=== PATIENT | female | born 1955 | race Caucasian/White ===

== ENCOUNTER 2023-09-15 18:30 | Inpatient (IN) | payer MEDICARE ==
[2023-09-15] MEDS ORDERED: NICOTINE GUM (POLACRILEX) 2 MG GUM BUCCAL PRN (19:29)
[2023-09-15] MEDS ORDERED: IPRATROPIUM-ALBUTEROL 3 ML NEB INHALATION PRN (19:29)
[2023-09-15] MEDS ORDERED: NALOXONE 0.4 MG/ML 1 ML VIAL IVP PRN (19:29)
--- NOTE | 2023-09-15 19:41 | ED ---
General Adult HPI - General Chief complaint: Shortness of Breath Stated complaint: SOB Time Seen by Provider: 09/15/23 18:33 Source: patient, EMS Mode of arrival: EMS Limitations: no limitations - History of Present Illness Initial comments: Elmira is a pleasant 68-year-old female with a history of lung cancer status posttreatment follows with oncology once yearly. Patient has a history of COPD and she reports she still smokes 6 to 10 cigarettes a day however for the past 2 to 3 days she has been feeling more short of breath she has not had any cigar ettes. Today shortness of breath was worsening she was not having any chest pain or productive cough but she went to see Eliza at outside hospital was noted to have COPD exacerbation with oxygen saturations were in the low 80s. - Related Data Allergies Allergy/AdvReac Type Severity Reaction Status Date / Time No Known Allergies Allergy Verified 09/15/23 18:40 Review of Systems ROS Statement: Those systems with pertinent positive or pertinent negative responses have been documented in the HPI. ROS Other: All systems not noted in ROS Statement are negative. Past Medical History Past Medical History: COPD History of Any Multi-Drug Resistant Organisms: None Reported Past Psychological History: No Psychological Hx Reported Smoking Status: Former smoker Past Alcohol Use History: None Reported Past Drug Use History: None Reported General Exam - General Exam Comments Initial Comments: Physical Exam GENERAL: Patient is well-developed and well-nourished. Patient is nontoxic and well-hydrated and is in no distress. HENT: Normocephalic, Atraumatic. EYES: PERRL, EOMI PULMONARY: Mild expiratory wheezing CARDIOVASCULAR: RRR Warm and well perfused extremities ABDOMEN: Non-distended SKIN: No rashes or bruising : Deferred NEUROLOGIC: Alert and oriented Normal speech Normal gait MUSCULOSKELETAL: Moving all extremities with no apparent injury PSYCHIATRIC: No SI/HI Limitations: no limitations Course Vital Signs 09/15/23 09/15/23 09/15/23 18:31 18:40 20:01 Temperature 98.1 F Pulse Rate 85 80 Respiratory 18 24 17 Rate Blood Pressure 134/75 116/61 O2 Sat by Pulse 97 98 Oximetry EKG Findings - EKG Comments: EKG Findings:: EKG interpreted by me EKG obtained due to complaint of dyspnea EKG obtained at 1841 rate is 84 rhythm is sinus with evidence of LVH. No acute ST elevations depressions no evidence of acute ischemia or infarction. Medical Decision Making - Medical Decision Making Was pt. sent in by a medical professional or institution (KLEVER Beckford, STUDENT SUPPORT SERVICES DIRECTOR, urgent care, hospital, or [facility]...) When possible be specific @ -Yes, transferring physician Did you speak to anyone other than the patient for history (EMS, parent, family, police, friend...)? What history was obtained from this source @ -Transferring physician, EMS Did you review nursing and triage notes (agree or disagree)? Why? @ -I reviewed and agree with nursing and triage notes Were old charts reviewed (outside hosp., previous admission, EMS record, old EKG, old radiological studies, urgent care reports/EKG's, [facility] records)? Report findings @ -Transfer charts were reviewed Differential Diagnosis (chest pain, altered mental status, abdominal pain women, abdominal pain men, vaginal bleeding, weakness, fever, dyspnea, syncope, headache, dizziness, GI bleed, back pain, seizure, CVA, palpatations, mental health)? @ -Not applicable EKG interpreted by me (3pts min.). @ -As above X-rays interpreted by me (1pt min.). @ -Outpatient x-ray with no signs of pneumonia CT interpreted by me (1pt min.). @ -None done U/S interpreted by me (1pt. min.). @ -None done What testing was considered but not performed or refused? (CT, X-rays, U/S, labs)? Why? @ -None What meds were considered but not given or refused? Why? @ -None Did you discuss the management of the patient with other professionals (professionals i.e. KLEVER Beckfodr, STUDENT SUPPORT SERVICES DIRECTOR, lab, RT, psych nurse, social director, dietitian teaching, teacher, information officer, manager of case management)? Give summary @ -Admitting team Was smoking cessation discussed for >3mins.? @ -Yes Was critical care preformed (if so, how long)? @ -No Were there social determinants of health that impacted care today? How? (Homelessness, low income, unemployed, alcoholism, drug addiction, transportation, low edu. Level, literacy, decrease access to med. care, long term, rehab)? @ -No Was there de-escalation of care discussed even if they declined (Discuss DNR or withdrawal of care, Hospice)? DNR status @ -No What co-morbidities impacted this encounter? (DM, HTN, Smoking, COPD, CAD, Cancer, CVA, ARF, Chemo, Hep., AIDS, mental health diagnosis, sleep apnea, morbid obesity)? @ -COPD, lung cancer Was patient admitted / discharged? Hospital course, mention meds given and route, prescriptions, significant lab abnormalities, going to OR and other pertinent info. @ -Admit Patient care was discussed with transferring physician patient does not typically require oxygen and is now hypoxic to the low 80s with moderate COPD exacerbation. Patient transferred here due to preference. Patient will be admitted for COPD exacerbation with hypoxia. Undiagnosed new problem with uncertain prognosis? @ -No Drug Therapy requiring intensive monitoring for toxicity (Heparin, Nitro, Insulin, Cardizem)? @ -No Were any procedures done? @ -No Diagnosis/symptom? @ -COPD exacerbation, hypoxia Acute, or Chronic, or Acute on Chronic? @ -Acute Uncomplicated (without systemic symptoms) or Complicated (systemic symptoms)? @ -Default Side effects of treatment? @ -No Exacerbation, Progression, or Severe Exacerbation? @ -Severe exacerbation Poses a threat to life or bodily function? How? (Chest pain, USA, MD, pneumonia, PE, COPD, DKA, ARF, appy, cholecystitis, CVA, Diverticulitis, Homicidal, Suicidal, threat to staff... and all critical care pts) @ -Can advance to respiratory failure and arrest Disposition Clinical Impression: COPD exacerbation, Hypoxic respiratory failure Disposition: ADMITTED IP TO THIS HOSP Condition: Serious Is patient prescribed a controlled substance at d/c from ED?: No
[2023-09-15] MEDS: AZITHROMYCIN 500 MG TAB PO SCH (20:16)
[2023-09-15] MEDS: methylPREDNISolone SOD SUCCI 125 MG/2 ML VIAL IV SCH (23:25)
--- NOTE | 2023-09-16 01:13 | XR ---
EXAMINATION TYPE: XR chest 1V portable DATE OF EXAM: 09/16/2023 CLINICAL HISTORY: Acute hypoxemic respiratory failure TECHNIQUE: Single frontal view of the chest is obtained. COMPARISON: None FINDINGS: There is small to tiny left pleural effusion. Some chronic type changes are present. The c ardiac silhouette size is within normal limits. Surgical clips left axilla and near the gastroesophag eal junction are noted. Patient is rotated to the left. The osseous structures are intact. IMPRESSION: Small to tiny left pleural effusion.
[2023-09-16 02:21] LABS: Basophils % (A) 0 %; Eosinophils % (A) 0 %; HCT 42.2 % (34.0-46.0); Lymphocytes # (A) 0.6 k/uL (1.0-4.8); Lymphocytes % (A) 11 %; MCH 30.1 pg (25.0-35.0); MCHC 33.2 g/dL (31.0-37.0); MCV 90.4 fL (80.0-100.0); Mean Platelet Volume 8.3; Monocytes # (A) 0.1 k/uL (0-1.0); Monocytes % (A) 2 %; Neutrophils # (A) 4.4 k/uL (1.3-7.7); Neutrophils % (A) 86 %; Platelet Count 266 k/uL (150-450); RBC 4.67 m/uL (3.80-5.40); RDW 13.3 % (11.5-15.5); WBC 5.1 k/uL (3.8-10.6)
[2023-09-16 02:30] LABS: ALT 14 U/L (4-34); AST 22 U/L (14-36); African American GFR (CKD) >90 (>60 ml/min/1.73 sqM); Albumin 3.9 g/dL (3.5-5.0); Albumin/Globulin Ratio 1.4; Alkaline Phosphatase 109 U/L (38-126); Anion Gap 6 mmol/L; Blood Urea Nitrogen 21 mg/dL (7-17); Calcium 9.5 mg/dL (8.4-10.2); Carbon Dioxide 28 mmol/L (22-30); Chloride 105 mmol/L (98-107); Globulin 2.7 g/dL; Glucose 162 mg/dL (74-99); Non-African American GFR(CKD) >90 (>60 ml/min/1.73 sqM); Potassium 4.2 mmol/L (3.5-5.1); Sodium 139 mmol/L (137-145); Total Bilirubin 0.5 mg/dL (0.2-1.3); Total Protein 6.6 g/dL (6.3-8.2)
--- NOTE | 2023-09-16 05:08 | P.CNPUL ---
History of Present Illness Consult date: 09/16/23 Requesting physician: Radha Farrell Reason for consult: COPD Chief complaint: Shortness of breath History of present illness: I am seeing this patient in consultation today 09/16/2023 after the patient was transferred to our facility from [facility] [place]. Patient is a 68-year-old white female with past medical history significant for COPD, lung cancer status posttreatment 8 years ago, and current ongoing tobacco dependence. Patient is originally from the [facility], where she follows with her primary care provider Dr. Zhao Ruano. She also has a out-of-town oncologist, Dr. Redding, who monitors her lung cancer. Patient has had a previous left upper lobectomy and adjuvant chemotherapy. Remains in remission. She just recently moved to the area to be closer to her family. She does plan to keep her recurrent physicians. She does have history of COPD which is normally managed with a combination of Trelegy inhaler and as needed albuterol rescue inhaler. She does continue to smoke 6 to 12 cigarettes/day. Over the last couple days the patient has been experiencing progressively worsening shortness of breath. She has been coughing and producing green purulent sputum. She states that her chest has been tight and she has been wheezing. Denies any fevers. Denies any sick contacts. She does report some right lateral chest pain described as stabbing/catching, lasting seconds to maybe 1 minute. During these events it is hard to get a deep breath. Happens when moving around or playing with her grandchildren. Yesterday, during episode of shortness of breath, where she could not catch her breath, she had a SpO2 of and 79%. She initially presented to [facility], then she was transferred to our facility. She is currently sitting up in bed, on 3 L/min nasal cannula, in no acute distress. Chest x-ray shows marked hyperinflation with flattening of the diaphragm consistent with COPD. No focal infiltrates or evidence of pneumonia. She was negative for influenza, RSV, COVID. Labs are pending. Currently afebrile. Vital signs are stable. Review of Systems REVIEW OF SYSTEMS: CONSTITUTIONAL: Denies any recent significant weight loss or weight gain. EYES: Denies change in vision. EARS, NOSE, MOUTH, THROAT: Denies headaches, denies sore throat. CARDIOVASCULAR: Denies radiating chest pain, palpitations or syncopal episodes. Denies lower extremity swelling. RESPIRATORY: See HPI GASTROINTESTINAL: Denies change in appetite, abdominal pain, nausea and vomiting, or diarrhea GENITOURINARY: Denies hematuria, denies infections. MUSKULOSKELETAL: Denies pain, denies swelling. INTEGUMENTARY: Denies rash, denies eczema. NEUROLOGICAL: Denies recent memory loss, no recent seizure activity. PSYCHIATRIC: Denies anxiety, denies depression. HEMATOLOGIC/LYMPHATIC: Denies anemia, denies enlarged lymph node Past Medical History Past Medical History: COPD History of Any Multi-Drug Resistant Organisms: None Reported Past Surgical History: Breast Surgery, Hysterectomy, Tonsillectomy Additional Past Surgical History / Comment(s): breast lupectomy left side,upper left lung lobe removed Past Psychological History: No Psychological Hx Reported Smoking Status: Former smoker Past Alcohol Use History: None Reported Past Drug Use History: None Reported Medications and Allergies Home Medications Medication Instructions Recorded Confirmed Type Albuterol Nebulized [Ventolin 2.5 mg INHALATION RT-QID PRN 09/15/23 09/15/23 History Nebulized] Albuterol Sulfate [Ventolin HFA] 2 puff INHALATION RT-Q4H PRN 09/15/23 09/15/23 History Anastrozole [Arimidex] 1 mg PO DAILY 09/15/23 09/15/23 History Ergocalciferol [Vitamin D2 (1250 1,250 mcg PO TU 09/15/23 09/15/23 History Mcg = 21959 Iu)] Fluticasone/Umeclidin/Vilanter 1 puff INHALATION RT-DAILY 09/15/23 09/15/23 History [Trelegy Ellipta 200-62.5-25] HYDROcodone/APAP 5-325MG [[place] 0.5 tab PO Q4HR PRN 09/15/23 09/15/23 History 5-325] Pantoprazole [Protonix] 40 mg PO DAILY 09/15/23 09/15/23 History diazePAM [Valium] 2.5 mg PO BID PRN 09/15/23 09/15/23 History Allergies Allergy/AdvReac Type Severity Reaction Status Date / Time No Known Allergies Allergy Verified 09/15/23 22:11 Physical Exam Vitals: Vital Signs Temp Pulse Pulse Resp BP BP Pulse Ox 09/15/23 22:35 97.7 F 82 16 132/82 97 09/15/23 22:23 82 16 09/15/23 20:01 80 17 116/61 98 09/15/23 18:40 24 09/15/23 18:31 98.1 F 85 18 134/75 97 Intake and Output 09/15/23 09/15/23 09/16/23 14:59 22:59 06:59 Other: Voiding Method Toilet Weight 54.431 kg GENERAL EXAM: Alert, 68-year-old white female, comfortable in no apparent distress. HEAD: Normocephalic and atraumatic EYES: Normal reaction of pupils, equal size. NOSE: Clear with pink turbinates. THROAT: No erythema or exudates. NECK: No masses, no JVD. CHEST: No chest wall deformity. LUNGS: Equal air entry with markedly diminished lung sounds throughout. On 3 L/ min nasal cannula. No conversational dyspnea or accessory muscle use.. CVS: S1 and S2 normal with no audible murmur, regular rhythm. No extra heart sounds ABDOMEN: No hepatosplenomegaly, active bowel sounds, no guarding or rigidity. SPINE: No scoliosis or deformity SKIN: No rashes CENTRAL NERVOUS SYSTEM: No focal deficits, tone is normal in all 4 extremities. EXTREMITIES: There is no peripheral edema, clubbing, or cyanosis. Peripheral pulses are intact. Results - Laboratory Findings CBC and BMP: 09/16/23 02:04 09/16/23 02:04 - Diagnostic Findings Chest x-ray: image reviewed Assessment and Plan Assessment: Acute hypoxemic respiratory failure, secondary to suspected acute COPD exacerbation. Chest x-ray does not show any focal infiltrates or evidence of pneumonia. There are some marked hyperinflation with flattening of the diaphragm consistent with COPD. Negative for influenza, RSV, COVID. Remote history of lung CA, status post left upper lobectomy and adjuvant chemotherapy, patient follows up annually with an out-of-town oncologist. Reportedly remains in remission. Chronic obstructive pulmonary disease, normally maintained on a combination of Trelegy inhaler and as needed albuterol rescue inhaler. Chronic ongoing tobacco dependence, reportedly smokes 6 to 12 cigarettes/day. History of GERD, without esophagitis History of anxiety Plan: Patient's medications and chest x-ray reviewed Labs are pending Continue supplemental oxygen to maintain oxygen saturation of 92% or greater Start patient on combination of bronchodilators, Symbicort Hailer, and IV Solu- Medrol Azithromycin added empirically. Smoking cessation counseling performed. Nicotine replacement offered. Will continue to follow with her out-of-town providers on discharge. We will continue to follow while inpatient I have personally seen and examined the patient, performed the documentation and the assessment and plan as written. Number of minutes spent on the visit:20 Time with Patient: Greater than 30
[2023-09-16 07:06] LABS: Glucose,Whole Blood 159 mg/dL (70-110)
[2023-09-16] MEDS: SYMBICORT 160-4.5 MCG INHALER INHALATION SCH (09:18)
[2023-09-16] MEDS: IPRATROPIUM-ALBUTEROL 3 ML NEB INHALATION SCH (09:19)
[2023-09-16] MEDS ORDERED: diazePAM 5 MG TAB PO PRN (09:38)
[2023-09-16] MEDS ORDERED: HYDROcodone/APAP 5-325MG 1 EACH TAB PO PRN (09:38)
[2023-09-16] MEDS: IBUPROFEN 400 MG TAB PO PRN (09:55)
[2023-09-16] MEDS: PANTOPRAZOLE 40 MG TABLET PO SCH (09:55)
[2023-09-16] MEDS: ANASTROZOLE 1 MG TAB PO SCH (09:56)
[2023-09-16 12:22] LABS: Glucose,Whole Blood 154 mg/dL (70-110)
[2023-09-16] MEDS ORDERED: DEXTROSE 50% SYRINGE 50 ML IVP PRN ×2 (15:42)
--- NOTE | 2023-09-16 15:44 | P.HPIM ---
History of Present Illness H&P Date: 09/16/23 This is a pleasant 68-year-old female with medical history significant for COPD, breast cancer, lung cancer with left upper lobectomy. Patient is in a normal therapy outpatient. Continues to smoke 1/2 pack of cigarettes per day. Patient comes in with complaints of shortness of breath over the last 2 to 3 days as well as chest discomfort worse with deep breathing. She is not having any cough. No fever or chills. No nausea vomiting or diarrhea. She was seen at an outside urgent care and was sent in for an acute COPD exacerbation. She was found to be hypoxemic on admission requiring 4 L of oxygen via nasal cannula. X-ray revealed small to tiny left pleural effusion upon review of the chest x- ray it appears more as COPD changes with hyperinflation especially in the right lung. Blood cell count is within normal limits at 5.1. Her blood sugar is mildly elevated at 162. Viral panel is negative for influenza, COVID, RSV. Patient was admitted to the hospital under medicine with a pulmonary consultation she has been started on high-dose IV Solu-Medrol, updrafts and oral azithromycin. She is maintained on Trelegy inhaler outpatient which we do not carry and she has been transition to Symbicort while inpatient. REVIEW OF SYSTEMS: CONSTITUTIONAL: No fever, no malaise, no fatigue. HEENT: No recent visual problems or hearing problems. Denied any sore throat. CARDIOVASCULAR: No chest pain, orthopnea, PND, no palpitations, no syncope. PULMONARY: No shortness of breath, no cough, no hemoptysis. GASTROINTESTINAL: No diarrhea, no nausea, no vomiting, no abdominal pain. NEUROLOGICAL: No headaches, no weakness, no numbness. HEMATOLOGICAL: Denies any bleeding or petechiae. GENITOURINARY: Denies any burning micturition, frequency, or urgency. MUSCULOSKELETAL/RHEUMATOLOGICAL: Denies any joint pain, swelling, or any muscle pain. ENDOCRINE: Denies any polyuria or polydipsia. The rest of the 14-point review of systems is negative. PHYSICAL EXAMINATION: GENERAL: The patient is alert and oriented x3, not in any acute distress. Well developed, well nourished. HEENT: Pupils are round and equally reacting to light. EOMI. No scleral icterus. No conjunctival pallor. Normocephalic, atraumatic. No pharyngeal erythema. No thyromegaly. CARDIOVASCULAR: S1 and S2 present. No murmurs, rubs, or gallops. PULMONARY: Chest is clear to auscultation, no wheezing or crackles. ABDOMEN: Soft, nontender, nondistended, normoactive bowel sounds. No palpable organomegaly. MUSCULOSKELETAL: No joint swelling or deformity. EXTREMITIES: No cyanosis, clubbing, or pedal edema. NEUROLOGICAL: Gross neurological examination did not reveal any focal deficits. SKIN: No rashes. Assessment and plan Acute COPD exacerbation continue with updrafts, symbicort, IV solumedrol, oral azithromycin, wean oxygen as tolerated Acute hypoxemic respiratory failure secondary to above pulmonary following Steroid induced hyperglycemia patient will be given novolog sliding scale insulin and accuchecks achs History of breast cancer with left-sided lumpectomy maintained on Arimidex outpatient has been resumed History of lung cancer with left upper lobectomy sees oncology yearly currently in remission Chronic and ongoing nicotine use patient is 1/2 pack/day smoker has not had a cigarette in 5 days counseled on smoking cessation GI prophylaxis DVT prophylaxis The impression and plan of care has been dictated by Mylene Carrillo Nurse Practitioner as directed. Dr. Clyde MD I have performed a history and physical examination and medical decision making of this patient, discussed the same with the dictator, and agree with the dictators assessment and plan as written, documented as a scribe. Based on total visit time, I have performed more than 50% of this visit. Past Medical History Past Medical History: COPD Additional Past Medical History / Comment(s): Breast cancer, lung cancer History of Any Multi-Drug Resistant Organisms: None Reported Past Surgical History: Breast Surgery, Hysterectomy, Tonsillectomy Additional Past Surgical History / Comment(s): breast lupectomy left side,upper left lung lobe removed Past Psychological History: No Psychological Hx Reported Smoking Status: Former smoker Past Alcohol Use History: None Reported Past Drug Use History: None Reported Medications and Allergies Home Medications Medication Instructions Recorded Confirmed Type Albuterol Nebulized [Ventolin 2.5 mg INHALATION RT-QID PRN 09/15/23 09/15/23 History Nebulized] Albuterol Sulfate [Ventolin HFA] 2 puff INHALATION RT-Q4H PRN 09/15/23 09/15/23 History Anastrozole [Arimidex] 1 mg PO DAILY 09/15/23 09/15/23 History Ergocalciferol [Vitamin D2 (1250 1,250 mcg PO TU 09/15/23 09/15/23 History Mcg = 82333 Iu)] Fluticasone/Umeclidin/Vilanter 1 puff INHALATION RT-DAILY 09/15/23 09/15/23 History [Trelegy Ellipta 200-62.5-25] HYDROcodone/APAP 5-325MG [[place] 0.5 tab PO Q4HR PRN 09/15/23 09/15/23 History 5-325] Pantoprazole [Protonix] 40 mg PO DAILY 09/15/23 09/15/23 History diazePAM [Valium] 2.5 mg PO BID PRN 09/15/23 09/15/23 History Allergies Allergy/AdvReac Type Severity Reaction Status Date / Time No Known Allergies Allergy Verified 09/15/23 22:11 Physical Exam Vitals: Vital Signs Temp Pulse Pulse Resp BP BP Pulse Ox 09/16/23 09:21 89 97 09/16/23 07:04 97.8 F 89 22 123/81 98 09/16/23 02:00 98 F 80 16 129/81 98 09/15/23 22:35 97.7 F 82 16 132/82 97 09/15/23 22:23 82 16 09/15/23 20:01 80 17 116/61 98 09/15/23 18:40 24 09/15/23 18:31 98.1 F 85 18 134/75 97 Intake and Output 09/15/23 09/16/23 09/16/23 22:59 06:59 14:59 Other: Voiding Method Toilet # Voids 3 Weight 54.431 kg Results CBC & Chem 7: 09/16/23 02:04 09/16/23 02:04 Labs: Abnormal Lab Results - Last 24 Hours (Table) 09/16/23 09/16/23 09/16/23 Range/Units 02:04 02:04 07:05 Lymphocytes # 0.6 L (1.0-4.8) k/uL BUN 21 H (7-17) mg/dL Glucose 162 H (74-99) mg/dL POC Glucose (mg/dL) 159 H (70-110) mg/dL Thrombosis Risk Factor Assmnt - Choose All That Apply Each Risk Factor Represents 2 Points: Age 61-74 years Other congenital or acquired thrombophilia - If yes, enter type in comment: No Thrombosis Risk Factor Assessment Total Risk Factor Score: 2 Thrombosis Risk Factor Assessment Level: Low Risk Assessment and Plan Time with Patient: Less than 30
[2023-09-16 17:00] LABS: Glucose,Whole Blood 178 mg/dL (70-110)
[2023-09-16] MEDS: INSULIN ASPART (NovoLOG) 100 UNIT/ML VIAL SQ SCH (18:22)
[2023-09-16 20:09] LABS: Glucose,Whole Blood 189 mg/dL (70-110)
[2023-09-17 07:02] LABS: Glucose,Whole Blood 145 mg/dL (70-110)
[2023-09-17] MEDS ORDERED: NON FORMULARY DRUG (Fluticasone/Umeclidin/Vilanter [Trelegy Ellipta 200-62.5-25] 1 EACH Bl INHALATION SCH (08:00)
[2023-09-17] MEDS: BENZONATATE 100 MG CAP PO SCH (08:15)
[2023-09-17] MEDS: predniSONE 20 MG TAB PO SCH (08:15)
--- NOTE | 2023-09-17 11:01 | P.PN ---
Subjective Progress Note Date: 09/17/23 I am seeing this patient in consultation today 09/16/2023 after the patient was transferred to our facility from [place] [facility]. Patient is a 68-year-old white female with past medical history significant for COPD, lung cancer status posttreatment 8 years ago, and current ongoing tobacco dependence. Patient is originally from the [facility], where she follows with her primary care provider Dr. Zhao Ruano. She also has a out-of-town oncologist, Dr. Redding, who monitors her lung cancer. Patient has had a previous left upper lobectomy and adjuvant chemotherapy. Remains in remission. She just recently moved to the area to be closer to her family. She does plan to keep her recurrent physicians. She does have history of COPD which is normally managed with a combination of Trelegy inhaler and as needed albuterol rescue inhaler. She does continue to smoke 6 to 12 cigarettes/day. Over the last couple days the patient has been experiencing progressively worsening shortness of breath. She has been coughing and producing green purulent sputum. She states that her chest has be en tight and she has been wheezing. Denies any fevers. Denies any sick contacts. She does report some right lateral chest pain described as stabbing/catching, lasting seconds to maybe 1 minute. During these events it is hard to get a deep breath. Happens when moving around or playing with her g randchildren. Yesterday, during episode of shortness of breath, where she could not catch her breath, she had a SpO2 of and 79%. She initially presented to [place] [facility], then she was transferred to our facility. She is currently sitting up in bed, on 3 L/min nasal cannula, in no acute distress. Chest x-ray shows marked hyperinflation with flattening of the diaphragm consistent with COPD. No focal infiltrates or evidence of pneumonia. She was negative for influenza, RSV, COVID. Labs are pending. Currently afebrile. Vital signs are stable. The patient is seen today September 17, 2023 in follow-up on the regular medical floor. She is resting quite comfortably in bed. Awake and alert in no acute distress. She is breathing easier today compared to yesterday. She is main taining O2 saturations in the 90s on 2 L nasal cannula. She was evaluated for home oxygen and her O2 saturations stayed in the mid 90s on room air while walking. Blood sugar 145. Procalcitonin was negative at 0.04. She is currently on azithromycin, DuoNeb inhalations, Symbicort, Solu-Medrol. Tessalon Perles for her cough. Objective - Vital Signs Vital signs: Vital Signs Temp 98.2 F 09/17/23 07:23 Pulse 80 09/17/23 08:32 Resp 16 09/17/23 07:23 BP 113/70 09/17/23 07:23 Pulse Ox 96 09/17/23 09:00 FiO2 Intake & Output 09/16/23 09/17/23 09/17/23 18:59 06:59 18:59 Intake Total 1620 118 Balance 1620 118 Intake: Oral 1620 118 Other: Voiding Method Toilet Toilet # Voids 2 - Exam GENERAL EXAM: Alert, very pleasant 68-year-old female, on 2 L nasal cannula, comfortable in no apparent distress. HEAD: Normocephalic and atraumatic EYES: Normal reaction of pupils, equal size. NOSE: Clear with pink turbinates. THROAT: No erythema or exudates. NECK: No masses, no JVD. CHEST: No chest wall deformity. LUNGS: Equal air entry with markedly diminished lung sounds throughout. No conversational dyspnea. CVS: S1 and S2 normal with no audible murmur, regular rhythm. No extra heart sounds ABDOMEN: No hepatosplenomegaly, active bowel sounds, no guarding or rigidity. SPINE: No scoliosis or deformity SKIN: No rashes CENTRAL NERVOUS SYSTEM: No focal deficits, tone is normal in all 4 extremities. EXTREMITIES: There is no peripheral edema, clubbing, or cyanosis. Peripheral pulses are intact. - Labs CBC & Chem 7: 09/16/23 02:04 09/16/23 02:04 Labs: Abnormal Lab Results - Last 24 Hours (Table) 09/16/23 09/16/23 09/16/23 Range/Units 12:21 16:58 20:07 POC Glucose (mg/dL) 154 H 178 H 189 H (70-110) mg/dL 09/17/23 Range/Units 07:01 POC Glucose (mg/dL) 145 H (70-110) mg/dL Assessment and Plan Assessment: Acute hypoxemic respiratory failure, secondary to suspected acute COPD exacerb ation. Chest x-ray does not show any focal infiltrates or evidence of pneumonia. There are some marked hyperinflation with flattening of the diaphragm consistent with COPD. Negative for influenza, RSV, COVID. Procalcitonin negative at 0.04 Remote history of lung CA, status post left upper lobectomy and adjuvant chemotherapy, patient follows up annually with an out-of-town oncologist. Reportedly remains in remission. Chronic obstructive pulmonary disease, normally maintained on a combination of Trelegy inhaler and as needed albuterol rescue inhaler. Chronic ongoing tobacco dependence, reportedly smokes 6 to 12 cigarettes/day. History of GERD, without esophagitis History of anxiety Plan: The patient was seen and evaluated Labs and medications reviewed Procalcitonin normal Discontinue azithromycin Discontinue Solu-Medrol Initiate a prednisone taper Educated regarding the importance of complete smoking cessation Probable discharge in the a.m. I have personally seen and examined the patient, performed the documentation and the assessment and plan as written. Number of minutes spent on the visit: 10.
[2023-09-17 11:53] LABS: Glucose,Whole Blood 157 mg/dL (70-110)
[2023-09-17 13:29] VITALS: BP 111/58; PULSE 71; RESP 20; TEMP 97.9
--- NOTE | 2023-09-18 21:23 | P.DS ---
Providers Date of admission: 09/15/23 19:32 Attending physician: Chaparrita Verma Consults: 09/15/23 19:29 Consult Physician Routine Consulting Provider: Magdaleno Greene Reason/Comments: COPD exacerbation Do you want consulting provider notified?: Yes, Notify in am Primary care physician: Physician Nonstaff Hospital Course: Final Diagnosis Acute COPD exacerbation Acute hypoxemic respiratory failure secondary to above pulmonary following Steroid induced hyperglycemia patient will be given novolog sliding scale insulin and accuchecks achs History of breast cancer with left-sided lumpectomy maintained on Arimidex outpatient History of lung cancer with left upper lobectomy sees oncology yearly currently in remission Chronic and ongoing nicotine use patient is 1/2 pack/day smoker has not had a cigarette in 5 days counseled on smoking cessation Discharge Disposition Patient is stable for discharge home. Has been prescribed oral prednisone taper on discharge. Patient advised to quit smoking and patient does verbalize that she wants to quit also. Patient has been weaned to room air. Recommending to follow up with pulmonary services in the office in 1 to 2 weeks. Continue all same home medications with the addition of prednisone taper and tessalon perles given for the cough. Hospital Course This is a pleasant 68-year-old female with medical history significant for COPD, breast cancer, lung cancer with left upper lobectomy. Patient is in a normal therapy outpatient. Continues to smoke 1/2 pack of cigarettes per day. Patient comes in with complaints of shortness of breath over the last 2 to 3 days as well as chest discomfort worse with deep breathing. She is not having any cough. No fever or chills. No nausea vomiting or diarrhea. She was seen at an outside urgent care and was sent in for an acute COPD exacerbation. She was found to be hypoxemic on admission requiring 4 L of oxygen via nasal cannula. X-ray revealed small to tiny left pleural effusion upon review of the chest x- ray it appears more as COPD changes with hyperinflation especially in the right lung. Blood cell count is within normal limits at 5.1. Her blood sugar is mildly elevated at 162. Viral panel is negative for influenza, COVID, RSV. Patient was admitted to the hospital under medicine with a pulmonary consultation she has been started on high-dose IV Solu-Medrol, updrafts and oral azithromycin. She is maintained on Trelegy inhaler outpatient which we do not carry and she has been transition to Symbicort while inpatient. Clinically patient improved. She has been weaned to room air; and her lungs are clear. Her productive cough has also improved. Patient asking for discharge home and clearance given by pulmonary services. She will be establishing care in the office on discharge. Please see medication reconciliation for a list of current medications. Thank you for allowing us to participate in the care of this patient. The impression and plan of care has been dictated by Mylene Carrillo, Nurse Practitioner as directed. Dr. Clyde MD I have performed a history and physical examination and medical decision making of this patient, discussed the same with the dictator, and agree with the dictators assessment and plan as written, documented as a scribe. Based on total visit time, I have performed more than 50% of this visit. Patient Condition at Discharge: Stable Plan - Discharge Summary Discharge Rx Participant: No New Discharge Prescriptions: New predniSONE 0 mg PO DIRECTED 16 Days #38 tab Benzonatate [Tessalon Perles] 100 mg PO TID #20 cap Continue Anastrozole [Arimidex] 1 mg PO DAILY diazePAM [Valium] 2.5 mg PO BID PRN PRN Reason: back pain Ergocalciferol [Vitamin D2 (1250 Mcg = 34488 Iu)] 1,250 mcg PO TU Albuterol Sulfate [Ventolin HFA] 2 puff INHALATION RT-Q4H PRN PRN Reason: Shortness Of Breath Albuterol Nebulized [Ventolin Nebulized] 2.5 mg INHALATION RT-QID PRN PRN Reason: Shortness Of Breath Pantoprazole [Protonix] 40 mg PO DAILY HYDROcodone/APAP 5-325MG [[place] 5-325] 0.5 tab PO Q4HR PRN PRN Reason: Pain Fluticasone/Umeclidin/Vilanter [Trelegy Ellipta 200-62.5-25] 1 puff INHALATION RT-DAILY Discharge Medication List Albuterol Nebulized [Ventolin Nebulized] 2.5 mg INHALATION RT-QID PRN 09/15/23 [History] Albuterol Sulfate [Ventolin HFA] 2 puff INHALATION RT-Q4H PRN 09/15/23 [History] Anastrozole [Arimidex] 1 mg PO DAILY 09/15/23 [History] Ergocalciferol [Vitamin D2 (1250 Mcg = 57399 Iu)] 1,250 mcg PO TU 09/15/23 [History] Fluticasone/Umeclidin/Vilanter [Trelegy Ellipta 200-62.5-25] 1 puff INHALATION RT-DAILY 09/15/23 [History] HYDROcodone/APAP 5-325MG [[place] 5-325] 0.5 tab PO Q4HR PRN 09/15/23 [History] Pantoprazole [Protonix] 40 mg PO DAILY 09/15/23 [History] diazePAM [Valium] 2.5 mg PO BID PRN 09/15/23 [History] Benzonatate [Tessalon Perles] 100 mg PO TID #20 cap 09/17/23 [Rx] predniSONE 0 mg PO DIRECTED 16 Days #38 tab 09/17/23 [Rx] Follow up Appointment(s)/Referral(s): Magdaleno Greene DO [Doctor of Osteopathic Medicine] - 09/25/23 9:00 am (Director [facility]) None,Stated [REFERRING] - 1-2 days (Patient instructed to find a Primary Care Physician and make a follow-up appointment) Patient Instructions/Handouts: Benzonatate (By mouth), Prednisone (By mouth), COPD (Chronic Obstructive Pulmonary Disease) (DC) Discharge/Stand Alone Forms: [facility] Area PCPs Discharge Disposition: HOME SELF-CARE
== END 2023-09-17 15:40 | disposition home or self-care (01) | DRG 190 ==
LOC: EC 18:30 → 5NMEDONC 19:32
PROVIDERS: ADMIT Hospitalist; ATTEND Hospitalist
DX: J44.1 Chronic obstructive pulmonary disease with (acute) exacerbation (principal); J96.01 Acute respiratory failure with hypoxia; C50.912 Malignant neoplasm of unspecified site of left female breast; K21.9 Gastro-esophageal reflux disease without esophagitis; F41.9 Anxiety disorder, unspecified; R73.9 Hyperglycemia, unspecified; T38.0X5A Adverse effect of glucocorticoids and synthetic analogues, initial encounter; F17.210 Nicotine dependence, cigarettes, uncomplicated; Z85.118 Personal history of other malignant neoplasm of bronchus and lung; Z90.2 Acquired absence of lung [part of]; Z79.811 Long term (current) use of aromatase inhibitors; Z79.51 Long term (current) use of inhaled steroids; Z71.6 Tobacco abuse counseling; Z92.21 Personal history of antineoplastic chemotherapy; Z79.899 Other long term (current) drug therapy
CPT/HCPCS: 71045; 80053; 83036; 84145; 84484; 85025; 87636; 94640; 94760; 99285

== ENCOUNTER 2023-12-08 12:29 | Day surgery (SDC) | payer MEDICARE ==
[2023-12-07 13:23] VITALS: BMI 17.4
[~2023-12-08 12:29] MED LIST: LACTATED RINGERS 1,000 ML IV SCH; LIDOCAINE 1% (10MG/ML) FOR IV START INTRADERMA PRN
[2023-12-08 13:12] VITALS: TEMP 98.2
[2023-12-08] MEDS: IV FLUID CONTINUATION 1,000 ML IV ONE (13:16)
[2023-12-08] MEDS: ATROPINE SULFATE 0.4 MG/ML 1 ML VIAL IM ONE (13:17)
[2023-12-08] MEDS: LACTATED RINGERS 1,000 ML IV SCH (13:18)
[2023-12-08] MEDS ORDERED: PROPOFOL 10 MG/ML 20 ML VIAL IV ONE (13:45)
[2023-12-08] MEDS ORDERED: MIDAZOLAM 2 MG/2 ML VIAL ONE (13:45)
[2023-12-08] MEDS ORDERED: LIDOCAINE 1% INJ 10MG/ML (20 ML MDV) ONE (13:45)
[2023-12-08] MEDS ORDERED: fentaNYL (PF) 50 MCG/ML 2 ML AMP ONE (13:45)
[2023-12-08] MEDS: ALBUTEROL NEBULIZED 2.5 MG/3 ML INHALATION ONE (14:08)
[2023-12-08] MEDS ORDERED: IPRATROPIUM 0.5 MG/2.5 ML NEBU INHALATION STA (14:24)
[2023-12-08] MEDS: IPRATROPIUM-ALBUTEROL 3 ML NEB INHALATION STA (14:25)
[2023-12-08 14:40] VITALS: RESP 20
[2023-12-08 14:57] VITALS: BP 123/78; PULSE 88
--- NOTE | 2023-12-08 21:49 | OP ---
OPERATIVE REPORT DATE OF SERVICE : PROCEDURE: Bronchoscopy, airway examination, therapeutic lavage, BAL, left upper lobe, brushes, left upper lobe. PREOPERATIVE DIAGNOSIS: COPD, retained secretions, and history of lung cancer. POSTOPERATIVE DIAGNOSIS: COPD, retained secretions, and history of lung cancer. FIRST METALLURGIST PROCESS: Dr. Shaye Swan. The patient's procedure was done in room #3 [facility]. There was informed consent and universal timeout. ANESTHESIA: Provided general anesthesia. DESCRIPTION OF PROCEDURE: After the patient was adequately sedated, and being fully monitored, the bronchoscope was inserted through the right nostril. It passed through the right nasopharynx into the oropharynx. The hypopharynx was identified. The hypopharyngeal structures were evaluated. Anterior commissure, true cords, false cords, arytenoids, piriform sinuses, right and left, vallecula, and epiglottis all appeared normal. The glottic opening was topicalized with lidocaine. The bronchoscope was pushed through the glottic opening into the trachea. There were thick secretions noted in the trachea. They were suctioned without difficulty. Once suctioned, the bronchoscope was traversed down the trachea into the area above the tracheal nadine. Tracheal nadine was sharp. First, we evaluated the left side. There was no left upper lobe from previous surgery for her lung cancer. Staple line could be seen. The 4 segments of the left lower lobe were evaluated. They appeared relatively normal. There were some secretions and they were suctioned. There was minimal bronchitis. On the right side, the anatomy was normal. The right upper lobe and its 3 segments, right middle lobe and its 2 segments, right lower lobe both 5 segments all appeared normal. Thin secretions were noted. They were suctioned without difficulty. Next, we went back to the left side, initially we brushed the left upper lobe where the previous lobectomy had taken place. There was definitely suture line amos noted. In addition, we did a wash in the left upper lobe. The patient tolerated the procedure well. There was no immediate complication. About 30 mL of fluid was recovered. It will be sent to the laboratory for analysis. The patient tolerated the procedure well, and the patient will be recovered. I did have the opportunity to speak to the patient's . MMODL / IJN: [id number] /
[2023-12-09 04:32] LABS: Appearance,BF Cloudy (Clear); RBC, Body Fluid 130 /UL (0-2000)
[2023-12-09 10:46] LABS: Nucleated Cells, Body Fluid 660 /UL
== END 2023-12-08 15:06 | disposition home or self-care (01) ==
LOC: ORWHC2ENDO 12:29
PROVIDERS: ATTEND Internal Medicine Critical Care Medicine
DX: J44.89 Other specified chronic obstructive pulmonary disease (principal); C34.90 Malignant neoplasm of unspecified part of unspecified bronchus or lung; Z90.2 Acquired absence of lung [part of]; C50.919 Malignant neoplasm of unspecified site of unspecified female breast; K21.9 Gastro-esophageal reflux disease without esophagitis; C44.90 Unspecified malignant neoplasm of skin, unspecified; Z79.899 Other long term (current) drug therapy; Z79.51 Long term (current) use of inhaled steroids; F17.210 Nicotine dependence, cigarettes, uncomplicated; Z79.811 Long term (current) use of aromatase inhibitors
CPT/HCPCS: 88104; 88108; 88305; 89050; 87070; 87205; 87116; 87102; 87206; 31623; 31624; J2250; J0461; J2001; J3010; J2704; 87077; 87186

== ENCOUNTER → 2024-03-02 | Outpatient (CLI) | payer MEDICARE ==
[2024-03-02 10:45] LABS: Chol/HDL Ratio 2.25 Ratio; LDL Cholesterol,Calculated 114.2 mg/dL (0.0-131.0)
[2024-03-03 05:44] LABS: Apolipoprotein A1 245 mg/dL (125 - 215); B/A1 Ratio 0.39 Ratio (0.30 - 0.90)
[2024-03-03 09:45] LABS: Lipoprotein A <5 mg/dL (0-30)
== END | disposition home or self-care (01) ==
LOC: LABWHC1 07:13
PROVIDERS: ATTEND Internal Medicine
DX: I25.10 Atherosclerotic heart disease of native coronary artery without angina pectoris (principal); E78.5 Hyperlipidemia, unspecified
CPT/HCPCS: 36415; 80061; 82172; 83695